=== PATIENT | male | born 1960 | race American Indian/Alaskan Native ===

== ENCOUNTER 2018-09-30 04:48 | Emergency (ER) | payer SELFPAY ==
[2018-09-30 04:59] VITALS: BP 162/83
--- NOTE | 2018-09-30 05:22 | Emergency Department Report ---
ED Back Pain/Injury HPI - General Chief Complaint: Back Pain/Injury Stated Complaint: LOWER BACK PAIN Time Seen by Provider: 09/30/18 05:05 Source: patient Limitations: No Limitations - History of Present Illness Initial Comments: 7-year-old male was opening a neighbor move furniture when he felt a strain and pain across his lower back when picking up her any object. Since that time it dull ache to the lower back, which is continued bleeding since its onset of paresthesia, loss of bowel or bladder, no hematuria, fever, chills, sweats MD Complaint: back pain -: Gradual, Sudden Similar Symptoms Previously: No Place: home Radiation: none Severity: mild Quality: aching Consistency: constant Improves With: none Worsens With: none Associated Symptoms: denies other symptoms - Related Data Previous Rx's Medication Instructions Recorded Last Taken Type methOCARBAMOL [Robaxin TAB] 750 mg PO Q8H PRN #14 tablet 09/30/18 Unknown Rx predniSONE [Deltasone] 50 mg PO QDAY #5 tab 09/30/18 Unknown Rx traMADol [Ultram] 50 mg PO Q6HR PRN #20 tablet 09/30/18 Unknown Rx Allergies Allergy/AdvReac Type Severity Reaction Status Date / Time Penicillins Allergy Hives Verified 09/30/18 04:59 ED Review of Systems ROS: Stated complaint: LOWER BACK PAIN Other details as noted in HPI Comment: All other systems reviewed and negative ED Past Medical Hx - Past Medical History Previous Medical History?: No - Surgical History Past Surgical History?: No - Social History Smoking Status: Never Smoker Substance Use Type: None - Medications Home Medications: Home Medications Medication Instructions Recorded Confirmed Last Taken Type methOCARBAMOL [Robaxin TAB] 750 mg PO Q8H PRN #14 tablet 09/30/18 Unknown Rx predniSONE [Deltasone] 50 mg PO QDAY #5 tab 09/30/18 Unknown Rx traMADol [Ultram] 50 mg PO Q6HR PRN #20 tablet 09/30/18 Unknown Rx ED Physical Exam - General Limitations: No Limitations General appearance: alert, in no apparent distress - Head Head exam: Present: atraumatic, normocephalic - Eye Eye exam: Present: normal appearance - ENT ENT exam: Present: mucous membranes moist - Neck Neck exam: Present: normal inspection - Respiratory Respiratory exam: Present: normal lung sounds bilaterally. Absent: respiratory distress - Cardiovascular Cardiovascular Exam: Present: regular rate, normal rhythm. Absent: systolic murmur, diastolic murmur, rubs, gallop - GI/Abdominal GI/Abdominal exam: Present: soft, normal bowel sounds - Rectal Rectal exam: Present: deferred - Extremities Exam Extremities exam: Present: normal inspection - Back Exam Back exam: Present: normal inspection, full ROM, tenderness, muscle spasm, paraspinal tenderness, other (negative seated straight leg raise). Absent: CVA tenderness (R), CVA tenderness (L), rash noted - Neurological Exam Neurological exam: Present: alert, oriented X3 - Psychiatric Psychiatric exam: Present: normal affect, normal mood - Skin Skin exam: Present: warm, dry, intact, normal color. Absent: rash ED Course Vital Signs 09/30/18 04:54 Temperature 98.4 F Pulse Rate 52 L Respiratory 18 Rate Blood Pressure 162/83 O2 Sat by Pulse 97 Oximetry Critical care attestation.: If time is entered above; I have spent that time in minutes in the direct care of this critically ill patient, excluding procedure time. ED Disposition Clinical Impression: Lumbago Disposition: DC-01 TO HOME OR SELFCARE Is pt being admited?: No Does the pt Need Aspirin: No Condition: Stable Instructions: Low Back Strain (ED), Muscle Spasm (ED), Back Pain (ED) Prescriptions: predniSONE [Deltasone] 50 mg PO QDAY #5 tab methOCARBAMOL [Robaxin TAB] 750 mg PO Q8H PRN #14 tablet PRN Reason: Pain, Moderate (4-6) traMADol [Ultram] 50 mg PO Q6HR PRN #20 tablet PRN Reason: Pain Referrals: JENIFFER ROSADO MD [Staff Physician] - 3-5 Days
--- NOTE | 2018-09-30 05:42 | XRay Report ---
LUMBAR SPINE 3 VIEWS INDICATION / CLINICAL INFORMATION: lower back pain. COMPARISON: None available. FINDINGS: Mild degenerative change at L3-4. No other significant skeletal abnormality. Alignment is normal. Signer Name: Carlos Snow MD FACSylvia Signed: 09/30/2018 5:38 AM Workstation Name: [id number]
== END 2018-09-30 05:45 | disposition home or self-care (01) ==
LOC: ED 04:48
DX: M54.5 Low back pain (principal); Z79.899 Other long term (current) drug therapy; Z88.0 Allergy status to penicillin
CPT/HCPCS: 72100; 99283

== ENCOUNTER 2020-09-22 18:45 | Emergency (ER) | payer SELFPAY ==
--- NOTE | 2020-09-22 19:55 | Event Note ---
ED Screening Note Date of service: 09/22/20 Time: 19:54 ED Screening Note: 59-year-old male patient presents to the emergency department complaint of left lower quadrant abdominal pain, nausea, and vomiting starting last night. No known history of diverticulitis. No history of prior abdominal surgeries. Patient has never undergone a colonoscopy. General: Awake, appropriately interactive, no acute distress. Neck: Supple. Full range of motion intact. Cardiovascular: Normal peripheral perfusion. Pulmonary: No respiratory distress. Patient is speaking normally without use of accessory muscles. Skin: No apparent rashes or lesions. Neurological: No facial asymmetry. Speech is clear. Follows commands. Patient is alert and oriented. Musculoskeletal: Moves all four extremities spontaneously with normal range of motion. Psych: Cooperative. Appropriate mood and affect. I have greeted and performed a focused rapid initial assessment of this patient. A comprehensive ED assessment and evaluation of the patient, analysis of all test results, and completion of the medical decision-making process will be conducted by additional ED providers. This initial assessment/diagnostic orders/clinical plan/treatment(s) is/are subject to change based on patients health status, clinical progression and re-assessment. Further treatment and workup at subsequent clinical provider's discretion. Patient/guardian urged not to elope from the ED as their condition may be serious if not clinically assessed and managed.
[2020-09-22 19:58] VITALS: BP 157/90
[2020-09-22 21:01] LABS: Basophils % (Auto) 0.5 % (0.0-1.8); Eosinophils % (Auto) 0.1 % (0.0-4.3); Hematocrit 48.8 % (35.5-45.6); Hemoglobin 15.9 gm/dl (11.8-15.2); Lymphocytes # (Auto) 1.2 K/mm3 (1.2-5.4); Lymphocytes % (Auto) 13.7 % (13.4-35.0); Mean Corpuscular HGB Conc 33 % (32-34); Mean Corpuscular Volume 89 fl (84-94); Monocytes # (Auto) 0.7 K/mm3 (0.0-0.8); Monocytes % (Auto) 7.4 % (0.0-7.3); Platelet Count 234 K/mm3 (140-440); Red Blood Count 5.52 M/mm3 (3.65-5.03); Red Cell Distribution Width 14.9 % (13.2-15.2)
[2020-09-22 21:04] LABS: Bilirubin,Urine NEG (Negative); Blood,Urine NEG (Negative); Color,Urine Yellow (Yellow); Mucus,Urine 3+ /HPF
[2020-09-22 21:18] LABS: Alanine Aminotransferase 13 units/L (7-56); Albumin 4.6 g/dL (3.9-5); BUN/Creatinine Ratio 10; Blood Urea Nitrogen 10 mg/dL (9-20); Calcium 9.3 mg/dL (8.4-10.2); Hemolysis Index 28
[2020-09-23] MEDS ORDERED: HYOSCYAMINE SUBL 0.125 MG TAB SL ONE (05:34)
[2020-09-23] MEDS ORDERED: ONDANSETRON 4 MG ODT TAB PO STA (05:34)
--- NOTE | 2020-09-23 06:33 | Emergency Department Report ---
ED Abdominal Pain HPI - General Chief Complaint: Nausea/Vomiting/Diarrhea Stated Complaint: VOMITING Time Seen by Provider: 09/23/20 05:31 Source: patient Mode of arrival: Ambulatory Limitations: No Limitations - History of Present Illness Initial Comments: 59-year-old -[place] male presents emerged department complaining of nausea and vomiting was started yesterday for unknown etiology not responding to Pepto-Bismol or Gas-X and now beginning to resolve some soreness to the to the abdomen primarily on the left side. Reports no hemoptysis no hematemesis no hematochezia, no fever, chills, sweats, no chest pain, no palpitations, no abdominal trauma, no hematuria no dysuria, no flank pain. Radiation: none Severity: mild Quality: dull Consistency: constant Improves With: nothing Worsens With: nothing - Related Data Previous Rx's Medication Instructions Recorded Last Taken Type methOCARBAMOL [Robaxin TAB] 750 mg PO Q8H PRN #14 tablet 09/30/18 Unknown Rx predniSONE [Deltasone] 50 mg PO QDAY #5 tab 09/30/18 Unknown Rx traMADoL [Ultram] 50 mg PO Q6HR PRN #20 tablet 09/30/18 Unknown Rx Omeprazole 40 mg PO DAILY #14 capsule. 09/23/20 Unknown Rx Ondansetron [Zofran ODT TAB] 8 mg PO Q12HR #14 tab.rapdis 09/23/20 Unknown Rx Allergies Allergy/AdvReac Type Severity Reaction Status Date / Time Penicillins Allergy Hives Verified 09/30/18 04:59 ED Review of Systems ROS: Stated complaint: VOMITING Other details as noted in HPI Comment: All other systems reviewed and negative ED Past Medical Hx - Past Medical History Previous Medical History?: No - Surgical History Past Surgical History?: No - Social History Smoking Status: Never Smoker Substance Use Type: None - Medications Home Medications: Home Medications Medication Instructions Recorded Confirmed Last Taken Type methOCARBAMOL [Robaxin TAB] 750 mg PO Q8H PRN #14 tablet 09/30/18 Unknown Rx predniSONE [Deltasone] 50 mg PO QDAY #5 tab 09/30/18 Unknown Rx traMADoL [Ultram] 50 mg PO Q6HR PRN #20 tablet 09/30/18 Unknown Rx Omeprazole 40 mg PO DAILY #14 capsule. 09/23/20 Unknown Rx Ondansetron [Zofran ODT TAB] 8 mg PO Q12HR #14 tab.magnusdis 09/23/20 Unknown Rx ED Physical Exam - General Limitations: No Limitations General appearance: alert, in no apparent distress - Head Head exam: Present: atraumatic, normocephalic - Eye Eye exam: Present: normal appearance - ENT ENT exam: Present: mucous membranes moist - Neck Neck exam: Present: normal inspection - Respiratory Respiratory exam: Present: normal lung sounds bilaterally. Absent: respiratory distress - Cardiovascular Cardiovascular Exam: Present: regular rate, normal rhythm. Absent: systolic murmur, diastolic murmur, rubs, gallop - GI/Abdominal GI/Abdominal exam: Present: soft, normal bowel sounds, other (No Rovsing, no Sharif Moore, no rebound tenderness, no Benji sign, no tenderness at McBurney's, no Szymanski sign). Absent: tenderness, guarding, rebound, organomegaly, mass - Rectal Rectal exam: Present: deferred - Extremities Exam Extremities exam: Present: normal inspection - Back Exam Back exam: Present: normal inspection - Neurological Exam Neurological exam: Present: alert, oriented X3 - Psychiatric Psychiatric exam: Present: normal affect, normal mood - Skin Skin exam: Present: warm, dry, intact, normal color. Absent: rash ED Course Vital Signs 09/22/20 19:48 Temperature 98.5 F Pulse Rate 63 Respiratory 18 Rate Blood Pressure 157/90 O2 Sat by Pulse 93 Oximetry ED Medical Decision Making - Lab Data Result diagrams: 09/22/20 20:35 09/22/20 20:35 Critical care attestation.: If time is entered above; I have spent that time in minutes in the direct care of this critically ill patient, excluding procedure time. ED Disposition Clinical Impression: Vomiting, Abdominal pain Disposition: DC-01 TO HOME OR SELFCARE Is pt being admited?: No Does the pt Need Aspirin: No Condition: Stable Instructions: Vomiting, Adult, Nausea and Vomiting, Adult, Nausea and Vomiting, Adult, [id number] Additional Instructions: You have been evaluated emergency department today for abdominal pain. Your evaluation did not show evidence of any medical conditions requiring emergent intervention at this time. Your lipase was it was elevated but not to a significant degree significant pancreatitis does not appear to be present at this time please drink plenty of fluids. Please schedule an appointment with your primary care physician. Return to emergency department if you experience worsening uncontrolled pain, fevers of 100.4 or greater, recurrent vomiting, inability to tolerate food or fluids by mouth, bloody stools or vomit, black tarry stools, or any other concerning symptoms. Prescriptions: Omeprazole 40 mg PO DAILY #14 capsule. Ondansetron [Zofran ODT TAB] 8 mg PO Q12HR #14 tab.govind Referrals: PRIMARY CARE, [Primary Care Provider] - 3-5 Days
== END 2020-09-23 07:00 | disposition home or self-care (01) ==
LOC: ED 18:45
DX: R11.2 Nausea with vomiting, unspecified (principal); R10.9 Unspecified abdominal pain; Z79.899 Other long term (current) drug therapy; Z88.0 Allergy status to penicillin
CPT/HCPCS: 36415; 80053; 81001; 83690; 83735; 85025; Q0162

== ENCOUNTER 2020-09-26 08:46 | Emergency (ER) | payer SELFPAY ==
[2020-09-26] MEDS ORDERED: ASPIRIN 325 MG TAB PO ONE (09:07)
--- NOTE | 2020-09-26 09:28 | XRay Report ---
CHEST 2 VIEWS INDICATION / CLINICAL INFORMATION: CP. COMPARISON: None available. FINDINGS: SUPPORT DEVICES: None. HEART / MEDIASTINUM: No significant abnormality. LUNGS / PLEURA: No significant pulmonary or pleural abnormality. No pneumothorax. ADDITIONAL FINDINGS: No significant additional findings. IMPRESSION: 1. No acute findings. Signer Name: Rancho Pathak MD Signed: 09/26/2020 9:23 AM Workstation Name: [id number]
[2020-09-26] MEDS ORDERED: METOCLOPRAMIDE 10 MG/2 ML INJ IV ONE (09:58)
--- NOTE | 2020-09-26 10:02 | Emergency Department Report ---
ED Chest Pain HPI - General Chief Complaint: Chest Pain Stated Complaint: PAIN IN CHEST Time Seen by Provider: 09/26/20 09:30 Source: patient Mode of arrival: Ambulatory Limitations: No Limitations - History of Present Illness Initial Comments: Patient is 59 years old male with no significant past medical history. Patient presented to the ER complaining of tightness in his chest mainly to the left side with no radiation. Patient stated the symptoms started this morning. Patient denied any shortness of breath, fever, chills or cough. Patient was seen here 2 days ago for indigestion according to the patient and he was discharged home. Patient stated that he felt better but symptoms came back again. MD Complaint: chest pain -: This morning Onset: during rest Pain Location: left chest Pain Radiation: none Severity scale (0 -10): 0 Quality: tightness Improves With: nothing - Related Data Previous Rx's Medication Instructions Recorded Last Taken Type methOCARBAMOL [Robaxin TAB] 750 mg PO Q8H PRN #14 tablet 09/30/18 Unknown Rx predniSONE [Deltasone] 50 mg PO QDAY #5 tab 09/30/18 Unknown Rx traMADoL [Ultram] 50 mg PO Q6HR PRN #20 tablet 09/30/18 Unknown Rx Omeprazole 40 mg PO DAILY #14 capsule. 09/23/20 Unknown Rx Ondansetron [Zofran ODT TAB] 8 mg PO Q12HR #14 tab.govind 09/23/20 Unknown Rx Simethicone [Bicarsim Forte] 125 mg PO Q6HR #30 tab 09/26/20 Unknown Rx Allergies Allergy/AdvReac Type Severity Reaction Status Date / Time No Known Allergies Allergy Unverified 09/26/20 09:07 Heart Score - HEART Score History: Moderately suspicious EKG: Non-specific Age: 45-65 Risk factors: 1-2 risk factors Troponin: < normal limit HEART Score: 4 - EKG Read Time Time EKG Completed: 09:01 EKG Read Time: 09:10 - Critical Actions Critical Actions: 4-6 pts:12-16.6% risk of adverse cardiac event. Should be admitted ED Review of Systems ROS: Stated complaint: PAIN IN CHEST Other details as noted in HPI Comment: All other systems reviewed and negative Constitutional: denies: chills, fever Respiratory: denies: cough, shortness of breath, SOB with exertion Cardiovascular: chest pain. denies: palpitations, dyspnea on exertion Gastrointestinal: nausea. denies: abdominal pain, vomiting Musculoskeletal: denies: back pain Neurological: denies: headache, weakness, numbness, paresthesias ED Past Medical Hx - Past Medical History Previous Medical History?: No - Surgical History Past Surgical History?: No - Social History Smoking Status: Never Smoker - Medications Home Medications: Home Medications Medication Instructions Recorded Confirmed Last Taken Type methOCARBAMOL [Robaxin TAB] 750 mg PO Q8H PRN #14 tablet 09/30/18 Unknown Rx predniSONE [Deltasone] 50 mg PO QDAY #5 tab 09/30/18 Unknown Rx traMADoL [Ultram] 50 mg PO Q6HR PRN #20 tablet 09/30/18 Unknown Rx Omeprazole 40 mg PO DAILY #14 capsule.dr 09/23/20 Unknown Rx Ondansetron [Zofran ODT TAB] 8 mg PO Q12HR #14 tab.rapdis 09/23/20 Unknown Rx Simethicone [Bicarsim Forte] 125 mg PO Q6HR #30 tab 09/26/20 Unknown Rx ED Physical Exam - General Limitations: No Limitations General appearance: alert, in no apparent distress - Head Head exam: Present: atraumatic, normocephalic, normal inspection - Eye Eye exam: Present: normal appearance, PERRL - ENT ENT exam: Present: normal exam, normal orophraynx, mucous membranes moist - Neck Neck exam: Present: normal inspection, full ROM. Absent: tenderness, meningis mus - Respiratory Respiratory exam: Present: normal lung sounds bilaterally - Cardiovascular Cardiovascular Exam: Present: regular rate, normal rhythm, normal heart sounds - GI/Abdominal GI/Abdominal exam: Present: soft, normal bowel sounds. Absent: distended, tenderness, guarding, rebound, rigid, organomegaly, mass, bruit, pulsatile mass - Extremities Exam Extremities exam: Present: normal inspection, full ROM, normal capillary refill. Absent: tenderness, pedal edema, calf tenderness - Back Exam Back exam: Present: normal inspection, full ROM. Absent: CVA tenderness (R), CVA tenderness (L) - Neurological Exam Neurological exam: Present: alert, oriented X3, CN II-XII intact, normal gait, reflexes normal. Absent: motor sensory deficit - Psychiatric Psychiatric exam: Present: normal mood - Skin Skin exam: Present: warm, intact, normal color ED Course Vital Signs 09/26/20 09/26/20 09/26/20 08:58 09:05 09:29 Temperature 98.6 F 98.6 F Pulse Rate 66 64 62 Respiratory 20 20 16 Rate Blood Pressure 123/81 Blood Pressure 123/81 [Right] O2 Sat by Pulse 96 100 98 Oximetry 09/26/20 09/26/20 09/26/20 09:30 09:46 10:00 Temperature Pulse Rate 71 66 58 L Respiratory 12 12 11 L Rate Blood Pressure 151/95 151/95 139/91 Blood Pressure [Right] O2 Sat by Pulse 98 100 100 Oximetry 09/26/20 09/26/20 09/26/20 10:16 10:30 10:46 Temperature Pulse Rate 60 65 Respiratory 12 12 Rate Blood Pressure 139/91 147/89 147/89 Blood Pressure [Right] O2 Sat by Pulse 99 99 98 Oximetry 09/26/20 09/26/20 09/26/20 11:00 11:07 11:09 Temperature Pulse Rate Respiratory 98 H Rate Blood Pressure 133/82 133/82 133/82 Blood Pressure 133/82 [Right] O2 Sat by Pulse 98 100 100 Oximetry 09/26/20 09/26/20 09/26/20 11:35 11:36 11:52 Temperature Pulse Rate Respiratory Rate Blood Pressure Blood Pressure [Right] O2 Sat by Pulse 99 99 99 Oximetry 09/26/20 09/26/20 09/26/20 12:00 12:30 13:00 Temperature Pulse Rate Respiratory Rate Blood Pressure 135/81 139/84 128/76 Blood Pressure [Right] O2 Sat by Pulse 99 100 99 Oximetry 09/26/20 13:20 Temperature Pulse Rate Respiratory Rate Blood Pressure Blood Pressure 128/76 [Right] O2 Sat by Pulse 99 Oximetry - Reevaluation(s) Reevaluation #1: 09/26/20 14:38 Patient stated that he is feeling much better. Patient stated that he does not have any chest pain. Patient is asking for work excuse. ED Medical Decision Making - Lab Data Result diagrams: 09/26/20 09:30 09/26/20 09:30 - EKG Data -: EKG Interpreted by [place] EKG shows normal: sinus rhythm Rate: normal - EKG Data Interpretation: no acute changes - Radiology Data Radiology results: report reviewed - Medical Decision Making Patient is 59 years old male with no significant past medical history. Patient presented to the ER complaining of tightness in his chest mainly to the left side with no radiation. Patient stated the symptoms started this morning. Patient denied any shortness of breath, fever, chills or cough. Patient was seen here 2 days ago for indigestion according to the patient and he was discharged home. Patient stated that he felt better but symptoms came back again. Patient remained chest pain-free in the ER. EKG showed no ST elevation. Chest x-ray is unremarkable. Labs reviewed and is unremarkable including a negative troponin x2. Patient strongly advised to follow-up with his primary care physician in the next 2 to 3days. Patient also given [facility] to follow-up in the next 2 to 3 days for outpatient cardiac work-up including stress test. Patient advised to return to the ER if he develop any symptoms or if his symptoms get worse. Critical care attestation.: If time is entered above; I have spent that time in minutes in the direct care of this critically ill patient, excluding procedure time. ED Disposition Clinical Impression: Acute chest pain Disposition: DC-01 TO HOME OR SELFCARE Is pt being admited?: No Condition: Stable Instructions: Nonspecific Chest Pain, Adult, Chest Pain (ED) Prescriptions: Simethicone [Bicarsim Forte] 125 mg PO Q6HR #30 tab Referrals: PRIMARY CAREMD [Primary Care Provider] - 3-5 Days [facility] [Provider Group] - 3-5 Days Forms: Work/School Release Form(ED)
[2020-09-26 10:06] LABS: Basophils # (Auto) 0.1 K/mm3 (0.0-0.1); Basophils % (Auto) 0.8 % (0.0-1.8); Eosinophils # (Auto) 0.1 K/mm3 (0.0-0.4); Hematocrit 51.2 % (35.5-45.6); Hemoglobin 17.1 gm/dl (11.8-15.2); Lymphocytes # (Auto) 1.9 K/mm3 (1.2-5.4); Lymphocytes % (Auto) 25.3 % (13.4-35.0); Mean Corpuscular HGB Conc 34 % (32-34); Mean Corpuscular Volume 89 fl (84-94); Monocytes # (Auto) 0.8 K/mm3 (0.0-0.8); Monocytes % (Auto) 11.4 % (0.0-7.3); Platelet Count 228 K/mm3 (140-440); Red Blood Count 5.74 M/mm3 (3.65-5.03); Red Cell Distribution Width 14.4 % (13.2-15.2)
[2020-09-26 10:08] LABS: Alanine Aminotransferase 13 units/L (7-56); Albumin 4.4 g/dL (3.9-5); BUN/Creatinine Ratio 16; Blood Urea Nitrogen 16 mg/dL (9-20); Calcium 9.3 mg/dL (8.4-10.2); Hemolysis Index 12
--- NOTE | 2020-09-26 14:35 | Electrocardiograph Report ---
[facility] Test Date: 2020-09-26 Test Time: 09:01:47 Pat Name: JESENIA LAMBERT Department: Room: Gender: M Investigations Chief: CHRISTINA : 1960 Requested By: LAUREN CHEN Order Number: [id number] Reading MD: Danyell Beasley Measurements Intervals [place] Rate: 64 P: 73 NE: 124 QRS: 4 QRSD: 118 T: 0 QT: 416 QTc: 430 Interpretive Statements Sinus rhythm Right atrial enlargement Poor quality ECG with baseline artifact No previous ECG available for comparison Electronically Signed On 09-26-2020 14:34:57 EDT by Danyell Beasley
[2020-09-26 15:38] VITALS: BP 127/72
== END 2020-09-26 15:46 | disposition home or self-care (01) ==
LOC: ED 08:46
DX: R07.9 Chest pain, unspecified (principal)
CPT/HCPCS: 36415; 71046; 80053; 83690; 84484; 85025; 93005; 96374; 99284; J2765